=== PATIENT | female | born 1950 | race Caucasian/White ===

== ENCOUNTER → 2016-06-02 | Outpatient (CLI) | payer OTHER ==
[~2016-06-02] MED LIST: ALEVE220 M1 PO; ATORVASTATIN CA10 MG PO; BENZONATATE200 M1 PO; CORDARONE200 M1 PO; HYDROCODONE/APA1 T16 PO; KLOR-CON SPRIN10 MEQ PO; LASIX20 MG PO; LOSARTAN POTAS100 MG PO; NITROFURANTOIN100 M3 PO; PREDNISONE PO; PRILOSEC20 MG PO; PROAIR RESPICL90 MCG INH; SERTRALINE HCL50 M1 PO; SOOTHE HYDRATIO15 ML; SOTALOL AF80 MG PO; SYMBICORT INH; SYSTANE BALANCE10 ML; TUSSIONEX PENN473 ML PO; VIT E PO; VITAL-D RX TABL1 TAB PO; WAL-TUSSIN100 MG/5 M PO; XARELTO20 MG PO; ZITHROMAX PO
== END | disposition home or self-care (01) ==
LOC: CECH 13:16
DX: I71.9 Aortic aneurysm of unspecified site, without rupture (principal); I79.0 Aneurysm of aorta in diseases classified elsewhere; I08.3 Combined rheumatic disorders of mitral, aortic and tricuspid valves
CPT/HCPCS: 93306

== ENCOUNTER → 2016-11-09 | Outpatient (CLI) | payer OTHER ==
--- NOTE | ~2016-11-09 | CT57 ---
[facility] A Service of [facility] & [facility] RADIOLOGY TEXT RESULTS PATIENT: ANNA ANTOINE LOCATION: [place] : 48 UNIT #: [id number] AGE: [address]: Munir Gallagher MD SEX: F ORDER DR: [id number] [facility] [address] [place], [place] [address] [id number] O MR#: [id number] [facility] #: [id number] NAME: ANNA ANTOINE : 1950 SEX: F STUDY DATE/TIME: 11/09/2016 14:58 UNIT: [facility] ROOM: STUDY DESCRIPTION: CT Chest Wo Cont Attending Physician: Munir Gallagher M.D. Referring Physician: Munir Gallagher M.D. Ordering Physician: Munir Gallagher M.D. Primary Care Physician: Munir Gallagher M.D. MEDICAL IMAGING REPORT This report is preliminary unless electronic signature is present EXAM CT of the chest without contrast. INDICATIONS Middle chest pain since November 04, 2016. The patient has a history of an aortic aneurysm. COMPARISON Comparison is made to a prior exam from June 02, 2015, which showed some bibasilar infiltrates. TECHNIQUE Axial CT images were obtained from the thoracic inlet through the dome of the diaphragm. No intravenous contrast material was administered. This CT exam was performed with one or more of the following radiation dose reduction techniques: automatic exposure control, adjustment of mA and/or kV according to patient size, and iterative reconstruction. FINDINGS Previously identified pulmonary infiltrates have resolved. No new pulmonary nodules or masses are seen. The thyroid gland, trachea and esophagus appear unremarkable. Patient does have postsurgical changes seen at the GE junction. Mediastinal lymph nodes do not appear pathologically enlarged. There is aneurysmal dilatation of the ascending thoracic aorta which measures up to 4.1 cm which is unchanged when compared to May of 2015. The proximal descending thoracic aorta tapers to a normal caliber. Patient's main pulmonary artery measures about 3.3 cm which is enlarged, which can be seen in the setting of pulmonary arterial hypertension. There is no pleural or pericardial effusion. Mediastinal lymph nodes do not appear pathologically enlarged. Patient is status post ventral hernia repair with mesh as well as status post cholecystectomy. I do not see any acute STS. [facility] A Service of [facility] & [facility] RADIOLOGY TEXT RESULTS PATIENT: ANNA ANTOINE LOCATION: [place] : 48 UNIT #: [id number] AGE: [address]: Munir Gallagher MD SEX: F ORDER DR: abnormalities within the upper abdomen. There is some dilatation of the common bile duct which may be postcholecystectomy in nature, it measures up to about 1.2 cm in diameter which is probably not significantly changed when compared to the 2016 study. Overall, pancreas appears mildly atrophic. 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 IMPRESSION 1. Stable aneurysmal dilatation of the ascending thoracic aorta measuring up to 4.1 cm. No significant interval change in the size of the aneurysm when compared to May 2015. 2. Patient does have enlargement of the main pulmonary artery finding is nonspecific but can be seen in the setting of pulmonary arterial hypertension. 3. Previously identified bibasilar infiltrates have resolved. 4. Please see the body of the report for any other additional incidental findings. Dictated by... Malou Pinzon M.D. THIS IS AN ELECTRONICALLY VERIFIED REPORT Malou Pinzon M.D. at 11/10/2016 5:15 PM JEAN/jluis alfredo TD: 11/09/2016 22:34 JOB #: [id number] MEDICAL IMAGING REPORT Page 1 of 1 COPY
== END | disposition home or self-care (01) ==
LOC: CCAT 14:12
DX: I71.9 Aortic aneurysm of unspecified site, without rupture (principal); I71.2 Thoracic aortic aneurysm, without rupture; I28.8 Other diseases of pulmonary vessels
CPT/HCPCS: 71250